=== PATIENT | female | born 1970 | race Caucasian/White ===

== ENCOUNTER 2025-07-29 08:39 | Emergency (ER) | payer BC, SELFPAY ==
[2025-07-29] VITALS (27 sets, daily range): BP systolic 121–145; BP diastolic 74–108; PULSE 73–87; RESP 13–24; TEMP 36.6; O2SAT 95–100
--- NOTE | 2025-07-29 08:30 | RT.EKG_ITS ---
APPROVED REPORT Exam: Resting ECG Reason for Exam: LOC Patient Location: E HR:77 bpm ECG Measurements Heart Rate 77 AXIS MD 142 P 74 QRSd 101 QRS 8 QT 379 T 37 QTc 430 Conclusion Sinus rhythm...normal P axis, V-rate 60- 99 Physician: No STEMI
--- NOTE | 2025-07-29 09:00 | DI.RAD_ITS ---
Exam(s) XR PORTABLE CHEST AP EXAM: XR PORTABLE CHEST AP CLINICAL HISTORY: uri, syncope, eval for pneumonia. TECHNIQUE: 2D digital imaging was performed. COMPARISON: No exams were available for comparison FINDINGS: Single AP portable view. Heart size is upper normal. The mediastinum is not widened. Lungs are clear. No infiltrates nor obvious pleural effusions. IMPRESSION: No acute pulmonary findings on this single AP portable view of the chest. DATA REPOSITORY: RADIATION DOSE DELIVERED:
[2025-07-29] MEDS: Lactated Ringers 1,000 ML 1000 ML IV (09:11)
[2025-07-29 09:20] LABS: Abs Immature Grans 0.03 10^3/uL (0.0-0.06); HCT 39.9 % (36.0-46.0); HGB 13.2 g/dL (11.2-15.7); Immature Grans % 0.4 %; MCH 28.9 pg (27.0-33.0); MCHC 33.1 % (32.0-36.0); MCV 87 fL (80-95); MPV 9.6 fL (8.0-11.0); Platelet Count 267 10^3/uL (130-400); RBC 4.57 10^6/uL (3.93-5.22); RDW 12.3 % (11.7-14.6); RDW-SD 39.2 fL; WBC 8.34 10^3/uL (4.4-10.8)
--- NOTE | 2025-07-29 09:22 | ED.GENADUL_ITS ---
Discharge Plan Disposition Patient Disposition: Home Condition: Good Discharge Details Clinical Impression: Syncope, Dehydration Primary Care Provider: Ladonna Lr ED Provider: Baudilio Sims Home Meds and New Rx's Prescriptions: No Action levothyroxine [Euthyrox] 88 mcg tablet 88 mcg PO DAILY cetirizine [All Day Allergy (cetirizine)] 10 mg tablet 10 mg PO DAILY Discharge Instructions Instructions: Fainting, Adult ED Additional Instructions: At this time your workup is returned very reassuring. There is no signs of significant electrolyte abnormality, blood clots, anemia, or health problems. Please drink plenty of fluids and stay well-hydrated. We have placed an order with our cardiology team to have a 48-hour heart monitor placed on you. They will contact you for an appointment time. If you notice any worsening of your symptoms, or any new symptoms such as vomiting, diarrhea, fever, chills, shortness of breath, chest pain, numbness, weakness, or fainting , please return immediately to the emergency department for reevaluation. Please follow up with your primary care provider as soon as possible for reassessment and reevaluation. As always, it was a pleasure participating in your medical care today. Stand Alone Forms: Portal Information Referrals: Ladonna Lr [Primary Care Provider, Medicine] Discharge Orders Other Ambulatory Orders: Holter Monitor (Routine) Timeframe: 1 Week Facility: [facility] - Location: Respiratory Therapy Ordered By: Baudilio Sims Discharge Data Discharge Date/Time-TO BE ENTERED AT DEPARTURE: 07/29/25 11:43 HPI General Date/Time Provider Initiated Documentation: 07/29/25 08:45 . 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 Patient states that over the last 2 to 3 days she has had mild upper respiratory symptoms, sore throat, congestion and runny nose. She had no associated cough, chest pain headache or other complaints. She states she has otherwise been feeling quite well. Today while standing at her desk at work she suddenly felt quite lightheaded and then subsequently syncopized. Per staff she went down to the ground gracefully, she did not have a hard strike to her head or face. The syncope was brief and she woke up shortly thereafter. No residual symptoms afterwards aside from nausea and clamminess. She denies any chest pain, headache, neck pain, tearing sensation in her chest, numbness, tingling, or weakness. She states that she had a similar symptom a few years ago during a viral illness. That resolved unremarkably otherwise. Patient denies any other complaints at this time. No family history of sudden cardiac , syncope, or pacemaker. No other modifying factors. Denies PE risk factors such as recent long car rides, immobilization, recent surgery, prior history of DVT or PE, family history of PE or DVT, morbid obesity, exogenous estrogen and smoking, hemoptysis, history of cancer. Related Data Home Medications Medication Instructions Recorded Confirmed cetirizine 10 mg tablet (All Day 10 mg PO DAILY 07/29/25 Allergy (cetirizine)) levothyroxine 88 mcg tablet 88 mcg PO DAILY 07/29/25 1 09/28/24 (Euthyrox) Allergies Allergy/AdvReac Type Severity Reaction Status Date / Time codeine AdvReac Mild Nausea Verified 07/29/25 08:49 General Stated Complaint: [id number] ZOILA: 3 Exam Narrative Exam Narrative: 1.Const: Well-nourished, Well-developed, appearing stated age 2.Eyes: PERRL, no conjunctival injection, and symmetrical lids. 3.ENT: Atraumatic external nose and ears. Slightly dry MM. Neck: Symmetric, trachea midline, No thyromegaly. Cerumen impaction on the left, no significant impaction on the right, no evidence of otitis media. Mild left-sided cervical lymphadenopathy. Mild erythema in the posterior oropharynx, no tonsillar exudate. No bulging, no evidence to suggest peritonsillar abscess. There is no evidence of raccoon eyes, subramanian sign, CSF rhinorrhea, mastoid tenderness, cranial crepitus, hemotympanum, exophthalmos, or hyphema. Patient demonstrates intact dentition with no signs of tooth avulsion or fracture, no signs of jaw deformity, no evidence of a LeFort's fracture, with an intact palate, nose and orbital region. There is no evidence of a nasal septal hematoma. No proptosis. Jaw closes symmetrically. Airway is clear. 4.CVS: +S1/S2, Peripheral pulses 2+ and equal in all extremities. Brisk capillary refill in all extremities. 5.RESP: Unlabored respiratory effort. Clear to auscultation bilaterally. No wheezes rales or rhonchi 6.GI: Soft, Nontender/Nondistended, No hepatosplenomegaly. No guarding or rebound. 7.MSK: Normocephalic/Atraumatic, Extremities w/o deformity or ttp No cyanosis or clubbing, Normal movement of all extremities. No pitting edema or calf tenderness 8.Skin: Warm, Dry. No rashes or lesions. 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 Sensation grossly intact, no focal neurologic deficits. All 6 cardinal planes of vision are fully intact. No evidence of rotatory or vertical nystagmus. The patient demonstrated a normal [id number], good dexterity. There was no evidence of dysdiadochokinesia. Patient was able to ambulate without difficulty. There was no wide-based gait. Romberg testing was normal. Wfez-cn-[id number] testing was normal. Sensation was intact bilaterally as well as muscle strength bilaterally for all extremities. Patient was able to verbalize butter cup with no slurring, or miss pronunciation. 10.Psych: (AAO) x3. Appropriate mood and affect Course Vital Signs Vital signs: Vital Signs Temperature 36.6 C 07/29/25 08:40 Pulse 80 07/29/25 08:40 Respiratory Rate 14 07/29/25 08:40 Blood Pressure 137/108 H 07/29/25 08:40 Pulse Oximetry 97 07/29/25 08:40 Temperature 36.6 C 07/29/25 08:40 Temperature Source Oral 07/29/25 08:40 Pulse 80 07/29/25 08:40 Respiratory Rate 16 07/29/25 09:05 Respiratory Effort Normal 07/29/25 09:05 Respiratory Depth Normal 07/29/25 09:05 Respiratory Pattern Normal 07/29/25 09:05 Blood Pressure 137/108 H 07/29/25 08:40 Blood Pressure Position Supine 07/29/25 08:40 Pulse Oximetry 97 07/29/25 08:40 Oxygen Delivery Method Room Air 07/29/25 08:40 Oxygen Flow Rate 0 07/29/25 08:40 Pain Level 0 07/29/25 08:40 Lab/Test Results Lab/Test Results: 07/29/25 08:55 Tonsil - Not Specified Group A Streptococcus Culture - Pending Laboratory Tests Range/Units 07/29/25 09:00 WBC (4.4-10.8) 10^3/uL 8.34 RBC (3.93-5.22) 10^6/uL 4.57 Hgb (11.2-15.7) g/dL 13.2 Hct (36.0-46.0) % 39.9 MCV (80-95) fL 87 MCH (27.0-33.0) pg 28.9 MCHC (32.0-36.0) % 33.1 RDW (11.7-14.6) % 12.3 Plt Count (130-400) 10^3/uL 267 MPV (8.0-11.0) fL 9.6 Immature Gran % % 0.4 Neutrophils % % 79.1 Lymphocytes % % 11.8 Monocytes % % 8.2 Eosinophils % % 0.1 Basophils % % 0.4 Nucleated RBC % (0.0-0.3) % 0.0 Absolute Neutrophils (1.2-6.7) 10^3/uL 6.61 Absolute Lymphocytes (1.2-3.4) 10^3/uL 0.98 L Absolute Monocytes (0.1-0.8) 10^3/uL 0.68 Absolute Eosinophils (0.0-0.7) 10^3/uL 0.01 Absolute Basophils (0.0-0.2) 10^3/uL 0.03 POC Strep Test-ABBIE(Rapid) Start: 07/29/25 09:04 Freq: .Rapid Strep Test Status: Active Protocol: Document 07/29/25 09:04 [facility] (Rec: 07/29/25 09:05 [facility] [id number]) Strep test-ABBIE(Rapid)-POC POC-Strep test-ABBIE ( Negative Rapid) POC-Strep test-ABBIE (Rapid) Negative Medical Decision Making This is a 55-year-old female with a 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 Patient states that over the last 2 to 3 days she has had mild upper respiratory symptoms, sore throat, congestion and runny nose. She had no associated cough, chest pain headache or other complaints. She states she has otherwise been feeling quite well. Today while standing at her desk at work she suddenly felt quite lightheaded and then subsequently syncopized. Per staff she went down to the ground gracefully, she did not have a hard strike to her head or face. The syncope was brief and she woke up shortly thereafter. No residual symptoms afterwards aside from nausea and clamminess. She denies any chest pain, headache, neck pain, tearing sensation in her chest, numbness, tingling, or weakness. She states that she had a similar symptom a few years ago during a viral illness. That resolved unremarkably otherwise. Patient denies any other complaints at this time. No family history of sudden cardiac , syncope, or pacemaker. No other modifying factors. Denies PE risk factors such as recent long car rides, immobilization, recent surgery, prior history of DVT or PE, family history of PE or DVT, morbid obesity, exogenous estrogen and smoking, hemoptysis, history of cancer. Exam demonstrates slightly dry mucous membranes, relatively clear lung sounds, no calf tenderness. No neurologic deficits on assessment. No signs of cranial trauma. She has no concerning red flags of pleuritic chest pain, tearing or ripping sensation, or history of sudden cardiac . She otherwise looks well. We will rehydrate her screening EKG, D-dimer, chest x-ray. Bedside limited echo shows no evidence of pericardial effusion. No dilated heart, no signs of significant hypertrophy. No wall motion abnormalities. Will rehydrate monitor closely and reassess. 3 PM Laboratory workup has returned, no white count bandemia or left shift. Mild lymphopenia suggestive of potential viral etiology. D-dimer negative, troponins normal, glucose and electrolytes normal, proBNP normal suggesting no signs of heart strain, thyroid function normal, COVID flu and RSV testing negative. After IV fluids patient felt much better. Syncope potentially related to mild dehydration and potential viral etiology, however at this time there is no evidence to suggest encephalitis, ACS, PE, or other significant abnormality. Will schedule for an outpatient Holter monitor for 48-hour cardiac monitoring to rule out potential dysrhythmia. Patient otherwise is in the low risk category for [place] syncope rule, and her current syncope symptomatology in general. Patient stable for discharge. I have extensively reviewed the treatment plan and discharge instructions with the patient. I have addressed all patient concerns at this time. The patient was made aware of what symptoms to monitor for that would warrant a return to the emergency department. Discussed the plan with the patient, they demonstrate verbal understanding and agreement with our assessment and plan at this time. The documentation in this chart was dictated using [employer] dictation software. Please excuse any dictation errors. FINDINGS: Single AP portable view. Heart size is upper normal. The mediastinum is not widened. Lungs are clear. No infiltrates nor obvious pleural effusions. IMPRESSION: No acute pulmonary findings on this single AP portable view of the chest. PFSH All Active Problems (Updated 07/29/25 @ 11:24 by Baudilio Sims DO) Dehydration (Acute) Syncope (Chronic) Social History Smoking/Tobacco Use Status: Never Smoking risk assessment performed?: Yes Alcohol Intake: current Alcohol Intake frequency: a few times a month Alcohol type: wine Drug use: Never Substance use type: does not use Housing: house Do you feel safe at home: Yes Do you feel safe in your relationship?: Yes PAWSS Have you Been Recently Intoxicated or Drunk Within the Last 30 days?: No Have you Ever Experienced Previous Episodes of Alcohol Withdrawal?: No Have you ever Experienced Withdrawal Seizures?: No Have you ever Experienced Delirium Tremens(DT)s?: No Have you ever undergone Alcohol Rehabilitation Treatment (i.e, inpt ot outpatient treatment programs)?: No Have you ever Experienced Blackouts?: No Have you ever Combined Alcohol with other Downers within the last 90 days?: No Have you ever Combined Alcohol with any other Substance of Abuse during the last 90 days?: No Positive Blood Alcohol level on Presentation? [PCS.BAL]: No Evidence of Increased Autonomic Activity (i.e. HR>120, tremor, sweating, agitation, nausea)?: No Result: 0 POCUS Exam (ED) Limited Cardiac Exam DATE OF EXAM: 07/29/25 TIME OF EXAM: 09:23 PROVIDER THAT PERFORMED THE STUDY: Baudilio Sims IS THIS A REPEAT EXAM DURING THIS ENCOUNTER: no REASON FOR EXAM: Syncope VISUALIZED STRUCTURES: Left atrium, Left ventricle, Right ventricle and Interventricular septum VIEW OBTAINED: Parasternal long-axis PERTINENT FINDINGS/IMPRESSION: No apparent abnormalities Exam complete
[2025-07-29 09:40] LABS: Magnesium 2.2 mg/dL (1.6-2.6)
[2025-07-29 09:41] LABS: Lipase 33 U/L (<53)
[2025-07-29 09:44] LABS: ALT 10 U/L (10-49); AST 20 U/L (<34); Albumin 4.4 g/dL (3.4-5.0); Alkaline Phosphatase 65 U/L (46-116); Anion Gap 10 mmol/L (3-11); BUN 9 mg/dL (9-23); Bilirubin, Total 0.90 mg/dL (0.2-1.2); CO2 26.0 mmol/L (20.0-31.0); Calcium 8.9 mg/dL (8.3-10.6); Chloride 105 mmol/L (98-107); Glucose 113 mg/dL (74-106); Potassium 3.8 mmol/L (3.5-5.1); Sodium 141 mmol/L (136-145); Total Protein 7.2 g/dL (5.7-8.2)
[2025-07-29 09:45] LABS: TSH (W/Ref FT4) 1.23 uIU/mL (0.55-4.78)
[2025-07-29 09:51] LABS: COVID-19 PCR Negative (Negative); RSV PCR Negative (Negative)
[2025-07-29 10:15] LABS: D-Dimer 274 ng/mlFEU (<500)
[2025-07-29 10:43] LABS: Troponin I < 3 ng/L (<35)
[2025-07-29 11:07] LABS: Troponin I < 3 ng/L (<35)
== END 2025-07-29 11:43 | disposition home or self-care (01) ==
PROVIDERS: Emergency Provider Student in an Organized Health Care Education/Training Program; PCP Nurse Practitioner
DX: R55 Syncope and collapse (principal); E86.0 Dehydration; J02.9 Acute pharyngitis, unspecified
CPT/HCPCS: 36415; 80053; 83690; 87637; 87880; 93005; 93308; 96360; 99284; 71045; 83735; 83880; 84443; 84484; 85025; 85379; 87081; 93010

== ENCOUNTER 2025-08-13 12:55 | Outpatient (RCR) | payer BC, SELFPAY ==
--- NOTE | 2025-08-18 09:27 | W.HOLTRPT ---
Date of service: 08/18/25 Time of Service: 09:27 Holter Monitor Report Referring Provider:: Ladonna Lr Indications:: Syncope Holter Monitor Note: This is a 48-hour Holter monitor Rhythm throughout was sinus with an average heart rate of 85. Minimum was 50, maximum 134 There was very rare isolated atrial and ventricular ectopic beats There was 1 self-limited atrial run, 15 beats in duration, asymptomatic There was no atrial fibrillation, no high-grade AV block, no greater than 3 seconds. No symptoms were reported
== END 2025-09-09 23:59 | disposition home or self-care (01) ==
LOC: CARDOPNVT 12:55
PROVIDERS: PCP Nurse Practitioner; Visit Provider Internal Medicine Cardiovascular Disease
DX: R55 Syncope and collapse (principal); I48.0 Paroxysmal atrial fibrillation
CPT/HCPCS: 93225; 93226